=== PATIENT | male | born 1935 | race Caucasian/White ===

== ENCOUNTER 2019-11-18 10:11 | Inpatient (IN) | payer MEDICARE, MEDICAID ==
[~2019-11-18] VITALS: Ht 167.6 cm; Wt 68.5 kg
[2019-11-18] MEDS ORDERED: SODIUM CHLORIDE 0.9% 1,000 ML IV ONE (10:27)
[2019-11-18] MEDS ORDERED: PIPERACILLIN/TAZ 3.375G PREMIX 50 ML IV ONE (10:30)
[2019-11-18] MEDS ORDERED: VANCOMYCIN 1 G PREMIX 200 ML IV ONE (10:30)
[2019-11-18 11:05] LABS: BASOPHILS % 0.4 % (0.0-2.0); EOSINOPHILS % 0.1 % (0.0-5.0); HEMATOCRIT. 33.1 % (42.0-52.0); HEMOGLOBIN. 11.1 g/dL (14.0-18.0); LYMPHOCYTES % 7.3 % (20.0-50.0); MEAN CORPUSCULAR HEMOGLOBIN 31.5 pg (28.0-32.0); MEAN CORPUSCULAR VOLUME 93.9 fL (80.0-94.0); MEAN PLATELET VOLUME 8.2 fl (7.4-10.4); MONOCYTES % 4.1 % (2.0-8.0); NEUTROPHILS % 88.1 % (40.0-76.0); PLATELET 330 x1000/uL (130-400); RED BLOOD CELL COUNT 3.52 mill/uL (4.7-6.1); RED CELL DISTRIBUTION WIDTH 17.6 % (11.6-14.6)
[2019-11-18 11:12] LABS: CHLORIDE 100 mEq/L (98-107)
[2019-11-18 11:13] LABS: INR 1.2; PROTHROMBIN TIME 13.4 sec (9.6-11.0)
[2019-11-18 11:21] LABS: CLARITY URINE TURBID (CLEAR); COLOR URINE YELLOW (YELLOW); KETONES URINE NEGATIVE (NEGATIVE); LEUKOCYTE ESTERASE URINE 3+ (NEGATIVE); NITRITE URINE NEGATIVE (NEGATIVE); OCCULT BLOOD URINE 3+ (NEGATIVE); PROTEIN URINE 3+ (NEGATIVE); SPECIFIC GRAVITY URINE 1.011 (1.005-1.030); UROBILINOGEN URINE 0.2 E.U./dL (0.2-1.0)
[2019-11-18 12:18] LABS: BG BASE EXCESS 5.4 mmol/L (-2.0-2.0); BG CARBOXYHEMOGLOBIN 0.3 % (0.5-1.5); BG DEOXYHEMOGLOBIN 3.5 % (0.0-5.0); BG FRACTION INSPIRED OXYGEN 100; BG HCO3 ACT 29.9 mmol/L (22.0-26.0); BG METHEMOGLOBIN 0.2 % (0.0-1.5); BG OXYGEN SATURATION 96.5 % (92.0-98.5); BG PCO2 43.7 mmHg (35.0-45.0); BG PH 7.453 (7.350-7.450); BG PO2 84.5 mmHg (75.0-100.0); BG SAMPLE SITE RIGHT RADIAL; BG TIDAL VOLUME(mL) 400 mL; BG TOTAL HEMOGLOBIN 10.1 g/dL (12.0-18.0); BG VENT MODE VENT - A/C; BG VENT RATE 14 set
[2019-11-18] MEDS ORDERED: ONDANSETRON HCL 4MG/2ML INJ IV PRN (12:30)
[2019-11-18] MEDS ORDERED: PIPERACILLIN/TAZ 3.375G PREMIX 50 ML IV SCH ×2 (12:30→23:00)
[2019-11-18] MEDS ORDERED: NITROGLYCERIN 0.4MG TABLET SL SL PRN (12:30)
[2019-11-18] MEDS ORDERED: NA PHOS,M-B/NA PHOS,DI-BA ENEMA 118ML PR PRN (12:30)
[2019-11-18] MEDS ORDERED: ACETAMINOPHEN 650MG/20.3ML UDC GT PRN (12:30)
[2019-11-18] MEDS ORDERED: TRAMADOL 50MG TABLET PO PRN (12:30)
[2019-11-18] MEDS ORDERED: DOCUSATE SODIUM 100MG CAPSULE PO PRN (12:30)
[2019-11-18] MEDS ORDERED: IPRATROPIUM/ALBUTEROL 0.5-3(2.5)MG/3ML NEB NEB PRN (12:30)
[2019-11-18] MEDS ORDERED: GUAIFENESIN 200MG/10ML SUGAR FREE UDC PO PRN (12:30)
[2019-11-18] MEDS: DEXT 5%/LACTATED RINGERS 1,000 ML IV SCH (12:53)
[2019-11-18] MEDS ORDERED: ENOXAPARIN 40MG/0.4ML SYR SUBCUT SCH (13:00)
[2019-11-18 14:20] LABS: FOLIC ACID (FOLATE) SERUM >20 ng/mL ng/mL (>5.38)
[2019-11-18 14:33] LABS: VITAMIN B12 SERUM 868 pg/mL (211-911)
[2019-11-18 16:17] LABS: CREATINE KINASE MB FRACTION 3.3 ng/mL (0.5-3.6)
[2019-11-18] MEDS: IPRATROPIUM/ALBUTEROL 0.5-3(2.5)MG/3ML NEB HHN SCH (19:58)
[2019-11-18] MEDS ORDERED: NOREPINEPHRINE 4MG/250ML PMX 250 ML IV ONE (21:11)
[2019-11-18] MEDS ORDERED: NOREPINEPHRINE 4 MG in DEXT 5% WATER 246 ML IV ONE (21:15)
[2019-11-18] MEDS ORDERED: ALBUMIN HUMAN 25GM/100ML (25%) IV NR (22:39)
[2019-11-19] VITALS (106 sets, daily range): BP systolic 71–175; BP diastolic 33–93
[2019-11-19 00:13] LABS: CREATINE KINASE MB FRACTION 5.2 ng/mL (0.5-3.6)
[2019-11-19] MEDS ORDERED: NOREPINEPHRINE 4MG/250ML PMX 250 ML IV SCH (00:32)
[2019-11-19] MEDS: IPRATROPIUM/ALBUTEROL 0.5-3(2.5)MG/3ML NEB HHN SCH ×6 (00:41→20:02)
[2019-11-19] MEDS ORDERED: ZOLPIDEM TARTRATE 5MG TABLET PO PRN (01:15)
[2019-11-19] MEDS ORDERED: VANCOMYCIN 1500MG in DEXTROSE 5% WATER 250ML IV SCH (02:00)
[2019-11-19] MEDS ORDERED: NOREPINEPHRINE 4 MG in DEXT 5% WATER 246 ML IV SCH (03:00)
[2019-11-19] MEDS: DEXT 5%/LACTATED RINGERS 1,000 ML IV SCH ×2 (03:00→17:54)
[2019-11-19] MEDS ORDERED: VASOPRESSIN 10 UNIT in SODIUM CHLORIDE 0.9% 99.5 ML IV PRN ×4 (03:00)
[2019-11-19 03:14] LABS: BG BASE EXCESS 5.8 mmol/L (-2.0-2.0); BG CARBOXYHEMOGLOBIN 0.3 % (0.5-1.5); BG DEOXYHEMOGLOBIN 2.9 % (0.0-5.0); BG FRACTION INSPIRED OXYGEN 80; BG METHEMOGLOBIN 0.4 % (0.0-1.5); BG OXYGEN SATURATION 97.1 % (92.0-98.5); BG OXYHEMOGLOBIN 96.4 % (94.0-97.0); BG PCO2 49.6 mmHg (35.0-45.0); BG PH 7.414 (7.350-7.450); BG PO2 93.3 mmHg (75.0-100.0); BG SAMPLE SITE RIGHT RADIAL; BG TIDAL VOLUME(mL) 450 mL; BG TOTAL HEMOGLOBIN 7.8 g/dL (12.0-18.0); BG VENT MODE VENT - A/C; BG VENT RATE 12 set
[2019-11-19 05:50] LABS: BASOPHILS % 0.2 % (0.0-2.0); LYMPHOCYTES % 7.7 % (20.0-50.0); MEAN CORPUSCULAR VOLUME 96.2 fL (80.0-94.0); MEAN PLATELET VOLUME 7.8 fl (7.4-10.4); MONOCYTES % 4.2 % (2.0-8.0); NEUTROPHILS % 87.9 % (40.0-76.0); PLATELET 307 x1000/uL (130-400); RED BLOOD CELL COUNT 1.94 mill/uL (4.7-6.1); RED CELL DISTRIBUTION WIDTH 18.1 % (11.6-14.6)
[2019-11-19 05:58] LABS: HEMATOCRIT. 18.7 % (42.0-52.0); HEMOGLOBIN. 6.2 g/dL (14.0-18.0)
[2019-11-19] MEDS: PIPERACILLIN/TAZOBACTAM 3.375 G in DEXT 5% WATER 100 ML IV SCH ×3 (06:32→21:29)
[2019-11-19] MEDS: NOREPINEPHRINE 32 MG in DEXT 5% WATER 468 ML IV PRN (06:51)
[2019-11-19] MEDS ORDERED: CRAN450T10 GT (07:01)
[2019-11-19] MEDS ORDERED: ENOX40DI8 SQ (07:01)
[2019-11-19] MEDS ORDERED: MULT1TAB76 GT (07:01)
[2019-11-19] MEDS ORDERED: FE300LUD GT (07:01)
[2019-11-19] MEDS ORDERED: TOPUD GT (07:01)
[2019-11-19] MEDS ORDERED: HYDR-3281 PO (07:01)
[2019-11-19] MEDS ORDERED: ZINC1CAP2 GT (07:01)
[2019-11-19] MEDS ORDERED: CRAN3875 PO (07:01)
[2019-11-19] MEDS ORDERED: DOCU-138 GT (07:01)
[2019-11-19] MEDS ORDERED: LISI2.5T47 GT (07:01)
[2019-11-19] MEDS ORDERED: ACET-2081 GT (07:01)
[2019-11-19] MEDS ORDERED: ASCO-339 GT (07:01)
[2019-11-19] MEDS ORDERED: FINA5TAB11 PO (07:01)
[2019-11-19] MEDS ORDERED: SAW/1TAB2 PO (07:01)
[2019-11-19 07:58] LABS: BG BASE EXCESS 5.2 mmol/L (-2.0-2.0); BG CARBOXYHEMOGLOBIN 0.2 % (0.5-1.5); BG DEOXYHEMOGLOBIN 2.8 % (0.0-5.0); BG FRACTION INSPIRED OXYGEN 80; BG HCO3 ACT 30.6 mmol/L (22.0-26.0); BG METHEMOGLOBIN 0.3 % (0.0-1.5); BG OXYGEN SATURATION 97.2 % (92.0-98.5); BG OXYHEMOGLOBIN 96.7 % (94.0-97.0); BG PCO2 51.4 mmHg (35.0-45.0); BG PH 7.393 (7.350-7.450); BG PO2 101.2 mmHg (75.0-100.0); BG SAMPLE SITE RIGHT RADIAL; BG TIDAL VOLUME(mL) 450 mL; BG TOTAL HEMOGLOBIN 6.5 g/dL (12.0-18.0); BG VENT MODE VENT - A/C; BG VENT RATE 12 set
[2019-11-19] MEDS ORDERED: ASPIRIN 81MG EC TABLET PO SCH (09:00)
[2019-11-19] MEDS ORDERED: ASCORBIC ACID 500 MG TABLET PO SCH (09:00)
[2019-11-19] MEDS ORDERED: PANTOPRAZOLE SODIUM 40 MG/VIAL IV SCH (09:00)
[2019-11-19] MEDS ORDERED: ZINC SULFATE 220 MG ( 50 ) CAPSULE PO SCH (09:00)
[2019-11-19 16:50] LABS: HEPATITIS B SURFACE ANTIGEN NEGATIVE
[2019-11-19 17:20] LABS: HEPATITIS A AB IGM NEGATIVE (NEGATIVE)
[2019-11-19] MEDS: PANTOPRAZOLE SODIUM 40 MG/VIAL IV SCH (17:52)
[2019-11-19 17:56] LABS: HEMATOCRIT 22.5 % (42.0-52.0); HEMOGLOBIN 7.9 g/dL (14.0-18.0)
[2019-11-20] VITALS (64 sets, daily range): BP systolic 86–151; BP diastolic 37–83
[2019-11-20] MEDS: IPRATROPIUM/ALBUTEROL 0.5-3(2.5)MG/3ML NEB HHN SCH ×7 (00:27→23:42)
[2019-11-20 00:43] LABS: HEMATOCRIT 29.2 % (42.0-52.0); HEMOGLOBIN 10.4 g/dL (14.0-18.0)
[2019-11-20] MEDS ORDERED: POTASSIUM CHLORIDE 20MEQ TABLET SR PO SCH (01:00)
[2019-11-20] MEDS: DEXT 5%/0.9% NACL 1,000 ML IV SCH ×2 (01:25→15:24)
[2019-11-20] MEDS: PIPERACILLIN/TAZOBACTAM 3.375 G in DEXT 5% WATER 100 ML IV SCH ×3 (05:09→21:07)
[2019-11-20 05:22] LABS: BASOPHILS % 0.2 % (0.0-2.0); EOSINOPHILS % 0.1 % (0.0-5.0); HEMATOCRIT. 25.3 % (42.0-52.0); LYMPHOCYTES % 7.6 % (20.0-50.0); MEAN CORPUSCULAR HEMOGLOBIN 31.2 pg (28.0-32.0); MEAN CORPUSCULAR VOLUME 87.9 fL (80.0-94.0); MEAN PLATELET VOLUME 7.7 fl (7.4-10.4); MONOCYTES % 2.7 % (2.0-8.0); NEUTROPHILS % 89.4 % (40.0-76.0); PLATELET 189 x1000/uL (130-400); RED BLOOD CELL COUNT 2.87 mill/uL (4.7-6.1); RED CELL DISTRIBUTION WIDTH 18.1 % (11.6-14.6)
[2019-11-20 05:23] LABS: CHLORIDE 101 mEq/L (98-107)
[2019-11-20 05:36] LABS: INR 1.1; PROTHROMBIN TIME 12.1 sec (9.6-11.0)
[2019-11-20] MEDS: VANCOMYCIN 750 MG PREMIX 150 ML IV SCH (05:36)
[2019-11-20 06:01] LABS: VITAMIN B12 SERUM 745 pg/mL (211-911)
[2019-11-20] MEDS: PANTOPRAZOLE SODIUM 40 MG/VIAL IV SCH ×2 (08:52→17:51)
[2019-11-20] MEDS ORDERED: FENTANYL CITRATE/PF 50MCG/ML 2ML VIAL ONE (14:27)
[2019-11-20] MEDS ORDERED: MIDAZOLAM HCL 5 MG/5 ML VIAL ONE (14:27)
[2019-11-20] MEDS ORDERED: MIDAZOLAM HCL 5 MG/5 ML VIAL IV PRN (14:43)
[2019-11-20] MEDS: NOREPINEPHRINE 32 MG in DEXT 5% WATER 468 ML IV PRN (15:38)
[2019-11-20 17:07] LABS: HEMOGLOBIN 7.4 g/dL (14.0-18.0)
[2019-11-20 17:08] LABS: HEMATOCRIT 21.1 % (42.0-52.0)
[2019-11-20 23:25] LABS: HEMATOCRIT 28.4 % (42.0-52.0)
[2019-11-21] VITALS (83 sets, daily range): BP systolic 79–133; BP diastolic 37–85
[2019-11-21] MEDS: IPRATROPIUM/ALBUTEROL 0.5-3(2.5)MG/3ML NEB HHN SCH ×5 (03:50→20:42)
[2019-11-21] MEDS: VANCOMYCIN 750 MG PREMIX 150 ML IV SCH (05:56)
[2019-11-21] MEDS: PIPERACILLIN/TAZOBACTAM 3.375 G in DEXT 5% WATER 100 ML IV SCH (05:56)
[2019-11-21] MEDS: DEXT 5%/0.9% NACL 1,000 ML IV SCH (05:57)
[2019-11-21 07:48] LABS: BG BASE EXCESS 1.8 mmol/L (-2.0-2.0); BG CARBOXYHEMOGLOBIN 0.3 % (0.5-1.5); BG DEOXYHEMOGLOBIN 1.6 % (0.0-5.0); BG FRACTION INSPIRED OXYGEN 80; BG HCO3 ACT 26.6 mmol/L (22.0-26.0); BG METHEMOGLOBIN 0.2 % (0.0-1.5); BG OXYGEN SATURATION 98.4 % (92.0-98.5); BG OXYHEMOGLOBIN 97.9 % (94.0-97.0); BG PCO2 42.9 mmHg (35.0-45.0); BG PH 7.411 (7.350-7.450); BG PO2 141.1 mmHg (75.0-100.0); BG SAMPLE SITE RIGHT RADIAL; BG TIDAL VOLUME(mL) 450 mL; BG VENT MODE VENT - A/C; BG VENT RATE 12 set
[2019-11-21] MEDS: PANTOPRAZOLE SODIUM 40 MG/VIAL IV SCH ×2 (08:10→17:33)
[2019-11-21] MEDS ORDERED: [UNRECOGNIZED DRUG - OTHER] XX SCH (09:30)
[2019-11-21 09:48] LABS: HEMATOCRIT. 25.4 % (42.0-52.0); HEMOGLOBIN. 8.9 g/dL (14.0-18.0); MEAN CORPUSCULAR HEMOGLOBIN 31.1 pg (28.0-32.0); MEAN CORPUSCULAR VOLUME 89.1 fL (80.0-94.0); MEAN PLATELET VOLUME 7.4 fl (7.4-10.4); PLATELET 147 x1000/uL (130-400); RED BLOOD CELL COUNT 2.86 mill/uL (4.7-6.1); RED CELL DISTRIBUTION WIDTH 16.8 % (11.6-14.6)
[2019-11-21 10:33] LABS: PLATELET ESTIMATE NORMAL
[2019-11-21] MEDS ORDERED: GENTAMICIN 120MG PREMIX 100 ML IV SCH (11:00)
[2019-11-21] MEDS: METOCLOPRAMIDE HCL 10MG/2ML VIAL IV SCH ×2 (11:35→17:33)
[2019-11-21] MEDS: DEXT 5%/0.45% NACL 1000ML 1,000 ML IV SCH (11:39)
[2019-11-21] MEDS ORDERED: KCL 20MEQ/100ML PREMIX 100 ML IV NR (12:00)
[2019-11-21] MEDS: SUCRALFATE 1 G/10 ML UDC PO SCH ×3 (12:02→21:15)
[2019-11-21] MEDS ORDERED: LEVOFLOXACIN 500MG PREMIX 100 ML IV SCH (13:00)
[2019-11-22] VITALS (49 sets, daily range): BP systolic 94–133; BP diastolic 42–77
[2019-11-22] MEDS: METOCLOPRAMIDE HCL 10MG/2ML VIAL IV SCH ×5 (00:18→23:56)
[2019-11-22] MEDS: MORPHINE SULFATE 2 MG/ML CPJ (NOT FOR IM USE) IV PRN (00:19)
[2019-11-22] MEDS: IPRATROPIUM/ALBUTEROL 0.5-3(2.5)MG/3ML NEB HHN SCH ×6 (00:36→20:26)
[2019-11-22] MEDS: VANCOMYCIN 750 MG PREMIX 150 ML IV SCH (05:34)
[2019-11-22 05:53] LABS: BASOPHILS % 0.3 % (0.0-2.0); EOSINOPHILS % 1.6 % (0.0-5.0); HEMATOCRIT. 26.9 % (42.0-52.0); HEMOGLOBIN. 9.6 g/dL (14.0-18.0); LYMPHOCYTES % 12.1 % (20.0-50.0); MEAN CORPUSCULAR HEMOGLOBIN 31.8 pg (28.0-32.0); MEAN CORPUSCULAR VOLUME 89.3 fL (80.0-94.0); MEAN PLATELET VOLUME 7.7 fl (7.4-10.4); MONOCYTES % 2.7 % (2.0-8.0); NEUTROPHILS % 83.3 % (40.0-76.0); PLATELET 152 x1000/uL (130-400); RED BLOOD CELL COUNT 3.01 mill/uL (4.7-6.1); RED CELL DISTRIBUTION WIDTH 16.8 % (11.6-14.6)
[2019-11-22 07:36] LABS: GENTAMICIN RANDOM 1.7 ug/mL; VANCOMYCIN TROUGH 23.7 ug/mL (5.0-10.0)
[2019-11-22] MEDS: PANTOPRAZOLE SODIUM 40 MG/VIAL IV SCH ×2 (08:17→18:06)
[2019-11-22] MEDS: SUCRALFATE 1 G/10 ML UDC PO SCH ×4 (08:17→20:44)
[2019-11-22] MEDS: DEXT 5%/0.45% NACL 1000ML 1,000 ML IV SCH (08:18)
[2019-11-22 08:52] LABS: BG CARBOXYHEMOGLOBIN 0.3 % (0.5-1.5); BG FRACTION INSPIRED OXYGEN 50; BG HCO3 ACT 27.6 mmol/L (22.0-26.0); BG METHEMOGLOBIN 0.1 % (0.0-1.5); BG OXYHEMOGLOBIN 94.6 % (94.0-97.0); BG PCO2 42.4 mmHg (35.0-45.0); BG PH 7.432 (7.350-7.450); BG PO2 70.4 mmHg (75.0-100.0); BG SAMPLE SITE RIGHT RADIAL; BG TIDAL VOLUME(mL) 450 mL; BG TOTAL HEMOGLOBIN 9.6 g/dL (12.0-18.0); BG VENT MODE VENT - A/C; BG VENT RATE 12 set
[2019-11-22] MEDS ORDERED: POTASSIUM CHLORIDE 20MEQ/PACKET PO NR (10:15)
[2019-11-22] MEDS ORDERED: GENTAMICIN 80MG PREMIX 100 ML IV SCH (12:00)
[2019-11-22] MEDS: LEVOFLOXACIN 250MG PREMIX 50 ML IV SCH (13:11)
[2019-11-23] VITALS (20 sets, daily range): BP systolic 113–148; BP diastolic 54–89
[2019-11-23] MEDS: IPRATROPIUM/ALBUTEROL 0.5-3(2.5)MG/3ML NEB HHN SCH ×6 (00:37→20:32)
[2019-11-23] MEDS: MORPHINE SULFATE 2 MG/ML CPJ (NOT FOR IM USE) IV PRN (04:31)
[2019-11-23] MEDS: METOCLOPRAMIDE HCL 10MG/2ML VIAL IV SCH ×3 (05:36→18:08)
[2019-11-23 06:27] LABS: BASOPHILS % 0.3 % (0.0-2.0); EOSINOPHILS % 1.6 % (0.0-5.0); HEMOGLOBIN. 9.8 g/dL (14.0-18.0); LYMPHOCYTES % 11.2 % (20.0-50.0); MEAN CORPUSCULAR HEMOGLOBIN 31.7 pg (28.0-32.0); MEAN PLATELET VOLUME 7.4 fl (7.4-10.4); MONOCYTES % 3.1 % (2.0-8.0); NEUTROPHILS % 83.8 % (40.0-76.0); PLATELET 158 x1000/uL (130-400); RED BLOOD CELL COUNT 3.08 mill/uL (4.7-6.1); RED CELL DISTRIBUTION WIDTH 17.6 % (11.6-14.6)
[2019-11-23 07:12] LABS: CHLORIDE 113 mEq/L (98-107)
[2019-11-23 07:19] LABS: PHOSPHORUS 1.7 mg/dL (2.5-4.9)
[2019-11-23 08:14] LABS: GENTAMICIN RANDOM 4.7 ug/mL
[2019-11-23 08:24] LABS: BG BASE EXCESS 3.2 mmol/L (-2.0-2.0); BG CARBOXYHEMOGLOBIN 0.2 % (0.5-1.5); BG DEOXYHEMOGLOBIN 2.9 % (0.0-5.0); BG FRACTION INSPIRED OXYGEN 50; BG HCO3 ACT 28.3 mmol/L (22.0-26.0); BG METHEMOGLOBIN 0.3 % (0.0-1.5); BG OXYGEN SATURATION 97.1 % (92.0-98.5); BG OXYHEMOGLOBIN 96.6 % (94.0-97.0); BG PCO2 44.9 mmHg (35.0-45.0); BG PH 7.417 (7.350-7.450); BG PO2 88.2 mmHg (75.0-100.0); BG SAMPLE SITE RIGHT RADIAL; BG TIDAL VOLUME(mL) 450 mL; BG VENT MODE VENT - A/C; BG VENT RATE 12 set
[2019-11-23] MEDS: SUCRALFATE 1 G/10 ML UDC PO SCH ×4 (08:49→20:41)
[2019-11-23] MEDS: POTASSIUM-SODIUM PHOSPHATE POWDER PACKET PO SCH ×2 (08:49→18:08)
[2019-11-23] MEDS: MULTIVITAMINS,THER W-MINERALS TABLET PO SCH (08:50)
[2019-11-23] MEDS: FUROSEMIDE 20MG TABLET PO SCH (08:50)
[2019-11-23] MEDS: PANTOPRAZOLE SODIUM 40 MG/VIAL IV SCH ×2 (08:50→18:08)
[2019-11-23] MEDS: LEVOFLOXACIN 250MG PREMIX 50 ML IV SCH (14:38)
[2019-11-23] MEDS ORDERED: VANCOMYCIN 1 G PREMIX 200 ML IV SCH (18:00)
[2019-11-24] VITALS (12 sets, daily range): BP systolic 102–148; BP diastolic 56–86
[2019-11-24] MEDS: IPRATROPIUM/ALBUTEROL 0.5-3(2.5)MG/3ML NEB HHN SCH ×6 (00:27→20:49)
[2019-11-24] MEDS: METOCLOPRAMIDE HCL 10MG/2ML VIAL IV SCH ×4 (05:37→17:02)
[2019-11-24 08:50] LABS: BG BASE EXCESS 9.7 mmol/L (-2.0-2.0); BG CARBOXYHEMOGLOBIN 0.3 % (0.5-1.5); BG DEOXYHEMOGLOBIN 14.8 % (0.0-5.0); BG FRACTION INSPIRED OXYGEN 50; BG HCO3 ACT 34.4 mmol/L (22.0-26.0); BG METHEMOGLOBIN 0.2 % (0.0-1.5); BG OXYGEN SATURATION 85.1 % (92.0-98.5); BG OXYHEMOGLOBIN 84.7 % (94.0-97.0); BG PCO2 47.5 mmHg (35.0-45.0); BG PH 7.478 (7.350-7.450); BG PO2 44.7 mmHg (75.0-100.0); BG SAMPLE SITE RIGHT RADIAL; BG TIDAL VOLUME(mL) 450 mL; BG TOTAL HEMOGLOBIN 10.5 g/dL (12.0-18.0); BG VENT MODE VENT - A/C; BG VENT RATE 12 set
[2019-11-24] MEDS: SUCRALFATE 1 G/10 ML UDC PO SCH ×4 (08:55→21:19)
[2019-11-24] MEDS: PANTOPRAZOLE SODIUM 40 MG/VIAL IV SCH ×2 (08:55→16:58)
[2019-11-24] MEDS: POTASSIUM-SODIUM PHOSPHATE POWDER PACKET PO SCH ×2 (08:55→16:58)
[2019-11-24] MEDS: FUROSEMIDE 20MG TABLET PO SCH (08:56)
[2019-11-24] MEDS: MULTIVITAMINS,THER W-MINERALS TABLET PO SCH (08:56)
[2019-11-24 10:10] LABS: BG BASE EXCESS 4.6 mmol/L (-2.0-2.0); BG CARBOXYHEMOGLOBIN 0.3 % (0.5-1.5); BG DEOXYHEMOGLOBIN 2.8 % (0.0-5.0); BG FRACTION INSPIRED OXYGEN 50; BG HCO3 ACT 29.3 mmol/L (22.0-26.0); BG METHEMOGLOBIN 0.2 % (0.0-1.5); BG OXYGEN SATURATION 97.2 % (92.0-98.5); BG OXYHEMOGLOBIN 96.7 % (94.0-97.0); BG PCO2 44.5 mmHg (35.0-45.0); BG PH 7.437 (7.350-7.450); BG PO2 90.7 mmHg (75.0-100.0); BG SAMPLE SITE RIGHT RADIAL; BG TIDAL VOLUME(mL) 450 mL; BG TOTAL HEMOGLOBIN 10.9 g/dL (12.0-18.0); BG VENT MODE VENT - A/C; BG VENT RATE 12 set
[2019-11-24] MEDS ORDERED: LEVOFLOXACIN 250MG TABLET PO SCH (11:00)
[2019-11-24] MEDS ORDERED: DEXTROSE 50% WATER 50ML SYRINGE IV PRN (12:00)
[2019-11-24] MEDS ORDERED: GENTAMICIN 120MG PREMIX 100 ML IV SCH (12:00)
[2019-11-24] MEDS: BLOOD SUGAR DIAGNOSTIC STRIP TEST SCH ×2 (13:00→17:00)
[2019-11-24] MEDS: INSULIN LISPRO 100 UNITS/ML SUBCUT SCH ×3 (13:00→21:00)
[2019-11-24 14:17] LABS: CHLORIDE 112 mEq/L (98-107)
== END 2019-11-24 21:57 | DRG 720 ==
LOC: ER 11:04 → CVICU 11:57 → EDBEDREQ 12:01 → SUPCPDRO 12:23 → EDBEDREQ 21:19 → EDBEDREQSVC 21:19 → EDBEDREQTM 21:19 → ENRESERV 23:53 → 5EST 11-23 17:27
PROVIDERS: ADMIT Internal Medicine; ATTEND Internal Medicine
PROC: 5A1955Z Respiratory Ventilation, Greater than 96 Consecutive Hours (ICD-10-PCS; principal; 2019-11-18)
PROC: 02HV33Z Insertion of Infusion Device into Superior Vena Cava, Percutaneous Approach (ICD-10-PCS; 2019-11-18)
PROC: B548ZZA Ultrasonography of Superior Vena Cava, Guidance (ICD-10-PCS; 2019-11-18)
PROC: 30233N1 Transfusion of Nonautologous Red Blood Cells into Peripheral Vein, Percutaneous Approach (ICD-10-PCS; 2019-11-19)
PROC: 0DB78ZX Excision of Stomach, Pylorus, Via Natural or Artificial Opening Endoscopic, Diagnostic (ICD-10-PCS; 2019-11-20)
DX: A41.9 Sepsis, unspecified organism (principal); J69.0 Pneumonitis due to inhalation of food and vomit; J96.20 Acute and chronic respiratory failure, unspecified whether with hypoxia or hypercapnia; N17.0 Acute kidney failure with tubular necrosis; E43 Unspecified severe protein-calorie malnutrition; G93.41 Metabolic encephalopathy; R57.1 Hypovolemic shock; K22.11 Ulcer of esophagus with bleeding; Z93.0 Tracheostomy status; N18.3 Chronic kidney disease, stage 3 (moderate); J44.1 Chronic obstructive pulmonary disease with (acute) exacerbation; D62 Acute posthemorrhagic anemia; E11.22 Type 2 diabetes mellitus with diabetic chronic kidney disease; D68.59 Other primary thrombophilia; E03.9 Hypothyroidism, unspecified; E11.51 Type 2 diabetes mellitus with diabetic peripheral angiopathy without gangrene; E78.5 Hyperlipidemia, unspecified; E87.0 Hyperosmolality and hypernatremia; E87.6 Hypokalemia; I48.0 Paroxysmal atrial fibrillation; I50.32 Chronic diastolic (congestive) heart failure; K22.2 Esophageal obstruction; K44.9 Diaphragmatic hernia without obstruction or gangrene; K29.61 Other gastritis with bleeding; B37.49 Other urogenital candidiasis; Y95 Nosocomial condition; E83.39 Other disorders of phosphorus metabolism; S81.812A Laceration without foreign body, left lower leg, initial encounter; R74.0 Nonspecific elevation of levels of transaminase and lactic acid dehydrogenase [LDH]; R47.02 Dysphasia; X58.XXXA Exposure to other specified factors, initial encounter; N40.0 Benign prostatic hyperplasia without lower urinary tract symptoms; Z86.718 Personal history of other venous thrombosis and embolism; Z87.11 Personal history of peptic ulcer disease; Z87.19 Personal history of other diseases of the digestive system; Z93.1 Gastrostomy status; Z79.899 Other long term (current) drug therapy; Y93.89 Activity, other specified; Y92.89 Other specified places as the place of occurrence of the external cause; Y99.8 Other external cause status
CPT/HCPCS: 36415; 36600; 71045; 74018; 76700; 76937; 80048; 80053; 80061; 80170; 80202; 81003; 82270; 82375; 82550; 82553; 82607; 82746; 82805; 82962; 83036; 83540; 83550; 83735; 83880; 84100; 84134; 84484; 85014; 85018; 85025; 85044; 86705; 86709; 86803; 86850; 86900; 86920; 87070; 87077; 87106; 87186; 87340; 88305; 88312; 88313; 93005; 93306; 93970; 94003; 94640; 99291; C1725; C9113; J1580; J1650; J1956; J2250; J2270; J2543; J2765; J3010; J3370; J3480; J3490; J7030; J7042; J7060; P9016; P9047

== ENCOUNTER 2019-12-08 23:52 | Inpatient (IN) | payer MEDICARE, MEDICAID ==
[~2019-12-08] VITALS: Ht 162.6 cm; Wt 66.2 kg
[~2019-12-08 23:52] MED LIST: ACET-2081 GT; ASCO-339 GT; CRAN3875 PO; CRAN450T10 GT; DOCU-138 GT; ENOX40DI8 SQ; FE300LUD GT; FINA5TAB11 PO; HYDR-3281 PO; LISI2.5T47 GT; MULT1TAB76 GT; SAW/1TAB2 PO; TOPUD GT; ZINC1CAP2 GT
[2019-12-09] VITALS (11 sets, daily range): BP systolic 80–139; BP diastolic 40–74
[2019-12-09 00:48] LABS: HEMATOCRIT. 30.1 % (42.0-52.0); HEMOGLOBIN. 10.2 g/dL (14.0-18.0); MEAN CORPUSCULAR HEMOGLOBIN 31.7 pg (28.0-32.0); MEAN CORPUSCULAR VOLUME 93.6 fL (80.0-94.0); PLATELET 379 x1000/uL (130-400); RED BLOOD CELL COUNT 3.22 mill/uL (4.7-6.1); RED CELL DISTRIBUTION WIDTH 18.1 % (11.6-14.6)
[2019-12-09 00:52] LABS: INR 1.1; PROTHROMBIN TIME 11.4 sec (9.6-11.0)
[2019-12-09 00:54] LABS: BG BASE EXCESS -4.3 mmol/L (-2.0-2.0); BG CARBOXYHEMOGLOBIN 0.1 % (0.5-1.5); BG DEOXYHEMOGLOBIN 1.7 % (0.0-5.0); BG FRACTION INSPIRED OXYGEN 80; BG HCO3 ACT 21.6 mmol/L (22.0-26.0); BG METHEMOGLOBIN 0.1 % (0.0-1.5); BG OXYGEN SATURATION 98.3 % (92.0-98.5); BG OXYHEMOGLOBIN 98.1 % (94.0-97.0); BG PH 7.319 (7.350-7.450); BG PO2 127.4 mmHg (75.0-100.0); BG SAMPLE SITE RIGHT RADIAL; BG TIDAL VOLUME(mL) 450 mL; BG TOTAL HEMOGLOBIN 10.1 g/dL (12.0-18.0); BG VENT MODE VENT - A/C; BG VENT RATE 16 set
[2019-12-09 00:57] LABS: CHLORIDE 96 mEq/L (98-107)
[2019-12-09] MEDS ORDERED: LEVOFLOXACIN 750MG PREMIX 150 ML IV ONE (01:00)
[2019-12-09] MEDS ORDERED: VANCOMYCIN 1 G PREMIX 200 ML IV SCH ×2 (01:00→07:30)
[2019-12-09] MEDS ORDERED: CEFEPIME HCL 2000MG/VIAL INJ IV ONE (01:00)
[2019-12-09] MEDS ORDERED: SODIUM CHLORIDE 0.9% 250 ML IV ONE (01:15)
[2019-12-09 01:26] LABS: PLATELET ESTIMATE NORMAL
[2019-12-09] MEDS ORDERED: CEFEPIME 2,000 MG in DEXT 5% WATER 100 ML IV SCH (02:00)
[2019-12-09 04:50] LABS: CLARITY URINE CLOUDY (CLEAR); COLOR URINE YELLOW (YELLOW); KETONES URINE NEGATIVE (NEGATIVE); LEUKOCYTE ESTERASE URINE 2+ (NEGATIVE); NITRITE URINE NEGATIVE (NEGATIVE); OCCULT BLOOD URINE 3+ (NEGATIVE); PROTEIN URINE 1+ (NEGATIVE); SPECIFIC GRAVITY URINE 1.024 (1.005-1.030); UROBILINOGEN URINE 0.2 E.U./dL (0.2-1.0)
[2019-12-09] MEDS ORDERED: IOHEXOL-300 100 ML BOTTLE ONE (07:10)
[2019-12-09] MEDS ORDERED: ONDANSETRON HCL 4MG/2ML INJ IV PRN (07:30)
[2019-12-09] MEDS ORDERED: LEVOFLOXACIN 500MG PREMIX 100 ML IV SCH (07:30)
[2019-12-09] MEDS ORDERED: GUAIFENESIN 200MG/10ML SUGAR FREE UDC PO PRN (07:30)
[2019-12-09] MEDS ORDERED: CLONIDINE 0.1MG TABLET PO PRN (07:30)
[2019-12-09 10:02] LABS: HEMATOCRIT. 27.3 % (42.0-52.0); HEMOGLOBIN. 9.3 g/dL (14.0-18.0); MEAN CORPUSCULAR HEMOGLOBIN 31.4 pg (28.0-32.0); MEAN CORPUSCULAR VOLUME 92.9 fL (80.0-94.0); MEAN PLATELET VOLUME 6.7 fl (7.4-10.4); PLATELET 296 x1000/uL (130-400); RED BLOOD CELL COUNT 2.94 mill/uL (4.7-6.1); RED CELL DISTRIBUTION WIDTH 18.6 % (11.6-14.6)
[2019-12-09 10:08] LABS: CHLORIDE 98 mEq/L (98-107)
[2019-12-09 10:14] LABS: PHOSPHORUS 3.5 mg/dL (2.5-4.9)
[2019-12-09] MEDS ORDERED: DEXTROSE 50% WATER 50ML SYRINGE IV PRN (10:15)
[2019-12-09 11:15] LABS: PLATELET ESTIMATE NORMAL
[2019-12-09] MEDS: BLOOD SUGAR DIAGNOSTIC STRIP TEST SCH ×3 (12:40→21:46)
[2019-12-09] MEDS: INSULIN LISPRO 100 UNITS/ML SUBCUT SCH ×3 (12:41→21:00)
[2019-12-09] MEDS: ENOXAPARIN 40MG/0.4ML SYR SUBCUT SCH (13:36)
[2019-12-09] MEDS: IPRATROPIUM/ALBUTEROL 0.5-3(2.5)MG/3ML NEB HHN SCH ×2 (14:21→20:25)
[2019-12-09] MEDS: ACETYLCYSTEINE 100MG/ML 10% VIAL 4ML INH SCH (20:25)
[2019-12-10] VITALS (16 sets, daily range): BP systolic 81–101; BP diastolic 41–74
[2019-12-10] MEDS: VANCOMYCIN 1 G PREMIX 200 ML IV SCH ×2 (00:28→18:15)
[2019-12-10] MEDS: IPRATROPIUM/ALBUTEROL 0.5-3(2.5)MG/3ML NEB HHN SCH ×4 (02:05→20:24)
[2019-12-10] MEDS: BLOOD SUGAR DIAGNOSTIC STRIP TEST SCH ×4 (07:32→21:44)
[2019-12-10 07:57] LABS: BG BASE EXCESS -1.7 mmol/L (-2.0-2.0); BG CARBOXYHEMOGLOBIN 0.3 % (0.5-1.5); BG DEOXYHEMOGLOBIN 0.9 % (0.0-5.0); BG FRACTION INSPIRED OXYGEN 70; BG HCO3 ACT 22.6 mmol/L (22.0-26.0); BG METHEMOGLOBIN 0.3 % (0.0-1.5); BG OXYGEN SATURATION 99.1 % (92.0-98.5); BG OXYHEMOGLOBIN 98.5 % (94.0-97.0); BG PH 7.416 (7.350-7.450); BG PO2 128.6 mmHg (75.0-100.0); BG SAMPLE SITE RIGHT BRACHIAL; BG TIDAL VOLUME(mL) 500 mL; BG TOTAL HEMOGLOBIN 7.3 g/dL (12.0-18.0); BG VENT MODE VENT - A/C; BG VENT RATE 16 set
[2019-12-10] MEDS: INSULIN LISPRO 100 UNITS/ML SUBCUT SCH ×4 (08:00→21:00)
[2019-12-10] MEDS: ACETYLCYSTEINE 100MG/ML 10% VIAL 4ML INH SCH ×2 (08:35→20:24)
[2019-12-10] MEDS: ENOXAPARIN 40MG/0.4ML SYR SUBCUT SCH (09:06)
[2019-12-10] MEDS: MIDODRINE HCL 2.5MG TABLET PO SCH ×2 (10:34→18:15)
[2019-12-10 11:00] LABS: HEMOGLOBIN. 7.7 g/dL (14.0-18.0); MEAN CORPUSCULAR HEMOGLOBIN 31.1 pg (28.0-32.0); MEAN CORPUSCULAR VOLUME 93.2 fL (80.0-94.0); PLATELET 261 x1000/uL (130-400); RED BLOOD CELL COUNT 2.47 mill/uL (4.7-6.1); RED CELL DISTRIBUTION WIDTH 18.6 % (11.6-14.6)
[2019-12-10] MEDS ORDERED: LEVOFLOXACIN 750MG PREMIX 150 ML IV SCH (11:00)
[2019-12-10 11:04] LABS: CHLORIDE 101 mEq/L (98-107)
[2019-12-10 11:16] LABS: T4 FREE 0.31 ng/dL (0.76-1.46)
[2019-12-10] MEDS: CEFEPIME 2,000 MG in DEXT 5% WATER 100 ML IV SCH (11:18)
[2019-12-10 11:58] LABS: PLATELET ESTIMATE NORMAL
[2019-12-11] VITALS (12 sets, daily range): BP systolic 80–114; BP diastolic 42–58
[2019-12-11] MEDS: IPRATROPIUM/ALBUTEROL 0.5-3(2.5)MG/3ML NEB HHN SCH ×4 (01:56→20:14)
[2019-12-11 06:02] LABS: CHLORIDE 102 mEq/L (98-107)
[2019-12-11 06:16] LABS: MEAN CORPUSCULAR HEMOGLOBIN 31.2 pg (28.0-32.0); PLATELET 265 x1000/uL (130-400); RED BLOOD CELL COUNT 2.24 mill/uL (4.7-6.1); RED CELL DISTRIBUTION WIDTH 18.6 % (11.6-14.6)
[2019-12-11 06:46] LABS: HEMATOCRIT. 20.6 % (42.0-52.0)
[2019-12-11] MEDS: ACETYLCYSTEINE 100MG/ML 10% VIAL 4ML INH SCH ×2 (07:55→20:14)
[2019-12-11] MEDS: INSULIN LISPRO 100 UNITS/ML SUBCUT SCH ×4 (08:00→23:29)
[2019-12-11] MEDS: BLOOD SUGAR DIAGNOSTIC STRIP TEST SCH ×4 (08:21→23:30)
[2019-12-11] MEDS: ENOXAPARIN 40MG/0.4ML SYR SUBCUT SCH (08:25)
[2019-12-11] MEDS: MIDODRINE HCL 2.5MG TABLET PO SCH ×3 (08:37→16:46)
[2019-12-11] MEDS: CEFEPIME 2,000 MG in DEXT 5% WATER 100 ML IV SCH (10:08)
[2019-12-11] MEDS: LEVOTHYROXINE SODIUM 50MCG TABLET PO SCH (10:08)
[2019-12-11 10:37] LABS: TOTAL IRON BINDING CAPACITY 155 ug/dL (250-450)
[2019-12-11 10:54] LABS: FOLIC ACID (FOLATE) SERUM >20 ng/mL ng/mL (>5.38)
[2019-12-11 11:05] LABS: PLATELET ESTIMATE NORMAL
[2019-12-11 11:06] LABS: VITAMIN B12 SERUM 1385 pg/mL (211-911)
[2019-12-11] MEDS: VANCOMYCIN HCL 750 MG in DEXT 5% WATER 250 ML IV SCH (12:45)
[2019-12-11] MEDS: ZINC SULFATE 220 MG ( 50 ) CAPSULE PO SCH (15:06)
[2019-12-11] MEDS: ASCORBIC ACID 500 MG TABLET PO SCH (15:07)
[2019-12-12] VITALS (11 sets, daily range): BP systolic 92–113; BP diastolic 49–74
[2019-12-12] MEDS: IPRATROPIUM/ALBUTEROL 0.5-3(2.5)MG/3ML NEB HHN SCH ×4 (01:46→20:13)
[2019-12-12] MEDS: VANCOMYCIN HCL 750 MG in DEXT 5% WATER 250 ML IV SCH (05:15)
[2019-12-12] MEDS: INSULIN LISPRO 100 UNITS/ML SUBCUT SCH ×3 (05:17→17:34)
[2019-12-12] MEDS: BLOOD SUGAR DIAGNOSTIC STRIP TEST SCH ×3 (05:22→17:28)
[2019-12-12 05:47] LABS: CHLORIDE 101 mEq/L (98-107)
[2019-12-12 05:54] LABS: HEMATOCRIT. 22.8 % (42.0-52.0); HEMOGLOBIN. 7.7 g/dL (14.0-18.0); MEAN CORPUSCULAR HEMOGLOBIN 31.5 pg (28.0-32.0); MEAN CORPUSCULAR VOLUME 92.8 fL (80.0-94.0); PLATELET 247 x1000/uL (130-400); RED BLOOD CELL COUNT 2.46 mill/uL (4.7-6.1); RED CELL DISTRIBUTION WIDTH 17.8 % (11.6-14.6)
[2019-12-12] MEDS: LEVOTHYROXINE SODIUM 50MCG TABLET PO SCH (08:20)
[2019-12-12] MEDS: ASCORBIC ACID 500 MG TABLET PO SCH (08:20)
[2019-12-12] MEDS: ZINC SULFATE 220 MG ( 50 ) CAPSULE PO SCH (08:20)
[2019-12-12] MEDS: MIDODRINE HCL 2.5MG TABLET PO SCH ×3 (08:20→17:28)
[2019-12-12] MEDS: ENOXAPARIN 40MG/0.4ML SYR SUBCUT SCH (08:21)
[2019-12-12] MEDS: ACETYLCYSTEINE 100MG/ML 10% VIAL 4ML INH SCH ×2 (08:39→20:13)
[2019-12-12 09:37] LABS: PLATELET ESTIMATE NORMAL
[2019-12-12] MEDS: CEFEPIME 2,000 MG in DEXT 5% WATER 100 ML IV SCH (11:12)
[2019-12-12] MEDS: FERROUS SULFATE 325MG TABLET PO SCH ×2 (14:46→17:28)
[2019-12-13] VITALS (13 sets, daily range): BP systolic 88–116; BP diastolic 43–61
[2019-12-13] MEDS: IPRATROPIUM/ALBUTEROL 0.5-3(2.5)MG/3ML NEB HHN SCH ×3 (00:40→21:20)
[2019-12-13] MEDS: IPRATROPIUM/ALBUTEROL 0.5-3(2.5)MG/3ML NEB HHN PRN ×3 (04:25→16:31)
[2019-12-13] MEDS: BLOOD SUGAR DIAGNOSTIC STRIP TEST SCH ×4 (05:19→17:26)
[2019-12-13] MEDS: INSULIN LISPRO 100 UNITS/ML SUBCUT SCH ×4 (05:19→17:26)
[2019-12-13 06:51] LABS: HEMATOCRIT. 22.7 % (42.0-52.0); HEMOGLOBIN. 7.7 g/dL (14.0-18.0); MEAN CORPUSCULAR HEMOGLOBIN 31.5 pg (28.0-32.0); MEAN CORPUSCULAR VOLUME 92.4 fL (80.0-94.0); MEAN PLATELET VOLUME 6.8 fl (7.4-10.4); PLATELET 272 x1000/uL (130-400); RED BLOOD CELL COUNT 2.45 mill/uL (4.7-6.1); RED CELL DISTRIBUTION WIDTH 18.3 % (11.6-14.6)
[2019-12-13 06:52] LABS: CHLORIDE 101 mEq/L (98-107)
[2019-12-13] MEDS: ACETYLCYSTEINE 100MG/ML 10% VIAL 4ML INH SCH ×2 (08:25→21:20)
[2019-12-13] MEDS: LEVOTHYROXINE SODIUM 50MCG TABLET PO SCH (08:46)
[2019-12-13] MEDS: MIDODRINE HCL 2.5MG TABLET PO SCH ×3 (08:46→17:26)
[2019-12-13] MEDS: ASCORBIC ACID 500 MG TABLET PO SCH (08:46)
[2019-12-13] MEDS: FERROUS SULFATE 325MG TABLET PO SCH ×3 (08:47→17:26)
[2019-12-13] MEDS: ENOXAPARIN 40MG/0.4ML SYR SUBCUT SCH (08:47)
[2019-12-13] MEDS: ZINC SULFATE 220 MG ( 50 ) CAPSULE PO SCH (08:48)
[2019-12-13 09:51] LABS: PLATELET ESTIMATE NORMAL
[2019-12-13] MEDS: CEFEPIME 2,000 MG in DEXT 5% WATER 100 ML IV SCH (11:08)
[2019-12-14] VITALS (16 sets, daily range): BP systolic 102–131; BP diastolic 47–74
[2019-12-14] MEDS: BLOOD SUGAR DIAGNOSTIC STRIP TEST SCH ×5 (00:27→23:34)
[2019-12-14] MEDS: IPRATROPIUM/ALBUTEROL 0.5-3(2.5)MG/3ML NEB HHN SCH ×4 (02:02→20:32)
[2019-12-14] MEDS: INSULIN LISPRO 100 UNITS/ML SUBCUT SCH ×5 (05:31→23:34)
[2019-12-14 07:20] LABS: HEMATOCRIT. 23.9 % (42.0-52.0); MEAN CORPUSCULAR HEMOGLOBIN 31.2 pg (28.0-32.0); MEAN CORPUSCULAR VOLUME 92.9 fL (80.0-94.0); MEAN PLATELET VOLUME 6.8 fl (7.4-10.4); PLATELET 256 x1000/uL (130-400); RED BLOOD CELL COUNT 2.57 mill/uL (4.7-6.1); RED CELL DISTRIBUTION WIDTH 18.9 % (11.6-14.6)
[2019-12-14 07:36] LABS: CHLORIDE 102 mEq/L (98-107)
[2019-12-14] MEDS: ACETYLCYSTEINE 100MG/ML 10% VIAL 4ML INH SCH ×2 (08:05→20:31)
[2019-12-14] MEDS: ASCORBIC ACID 500 MG TABLET PO SCH (08:39)
[2019-12-14] MEDS: ZINC SULFATE 220 MG ( 50 ) CAPSULE PO SCH (08:39)
[2019-12-14] MEDS: MIDODRINE HCL 2.5MG TABLET PO SCH ×3 (08:40→17:17)
[2019-12-14] MEDS: FERROUS SULFATE 325MG TABLET PO SCH ×2 (08:40→11:54)
[2019-12-14] MEDS: LEVOTHYROXINE SODIUM 50MCG TABLET PO SCH (08:42)
[2019-12-14 11:34] LABS: PLATELET ESTIMATE NORMAL
[2019-12-14] MEDS: CEFEPIME 2,000 MG in DEXT 5% WATER 100 ML IV SCH (11:54)
[2019-12-14 18:02] LABS: TOTAL IRON BINDING CAPACITY 133 ug/dL (250-450)
[2019-12-15] VITALS (12 sets, daily range): BP systolic 83–113; BP diastolic 49–65
[2019-12-15] MEDS: IPRATROPIUM/ALBUTEROL 0.5-3(2.5)MG/3ML NEB HHN SCH ×4 (03:33→20:37)
[2019-12-15] MEDS: BLOOD SUGAR DIAGNOSTIC STRIP TEST SCH ×3 (05:19→17:56)
[2019-12-15] MEDS: INSULIN LISPRO 100 UNITS/ML SUBCUT SCH ×3 (05:19→17:56)
[2019-12-15 06:19] LABS: CHLORIDE 101 mEq/L (98-107)
[2019-12-15 06:27] LABS: HEMATOCRIT. 24.7 % (42.0-52.0); HEMOGLOBIN. 8.2 g/dL (14.0-18.0); MEAN CORPUSCULAR VOLUME 93.7 fL (80.0-94.0); MEAN PLATELET VOLUME 6.8 fl (7.4-10.4); PLATELET 290 x1000/uL (130-400); RED BLOOD CELL COUNT 2.63 mill/uL (4.7-6.1)
[2019-12-15] MEDS: PANTOPRAZOLE SODIUM 40 MG/VIAL IV SCH (08:57)
[2019-12-15] MEDS: ASCORBIC ACID 500 MG TABLET PO SCH (08:58)
[2019-12-15] MEDS: ZINC SULFATE 220 MG ( 50 ) CAPSULE PO SCH (08:58)
[2019-12-15] MEDS: MIDODRINE HCL 2.5MG TABLET PO SCH ×3 (08:58→18:06)
[2019-12-15] MEDS: LEVOTHYROXINE SODIUM 50MCG TABLET PO SCH (08:59)
[2019-12-15] MEDS: CEFEPIME 2,000 MG in DEXT 5% WATER 100 ML IV SCH (10:05)
[2019-12-15 11:06] LABS: PLATELET ESTIMATE NORMAL
[2019-12-16] VITALS (11 sets, daily range): BP systolic 95–125; BP diastolic 50–72
[2019-12-16] MEDS: BLOOD SUGAR DIAGNOSTIC STRIP TEST SCH ×4 (00:48→17:29)
[2019-12-16] MEDS: IPRATROPIUM/ALBUTEROL 0.5-3(2.5)MG/3ML NEB HHN SCH ×4 (01:57→16:35)
[2019-12-16] MEDS: INSULIN LISPRO 100 UNITS/ML SUBCUT SCH ×4 (06:30→17:29)
[2019-12-16] MEDS: MIDODRINE HCL 2.5MG TABLET PO SCH ×3 (08:46→17:35)
[2019-12-16] MEDS: ZINC SULFATE 220 MG ( 50 ) CAPSULE PO SCH (08:46)
[2019-12-16] MEDS: ASCORBIC ACID 500 MG TABLET PO SCH (08:46)
[2019-12-16] MEDS: PANTOPRAZOLE SODIUM 40 MG/VIAL IV SCH (08:46)
[2019-12-16] MEDS: LEVOTHYROXINE SODIUM 50MCG TABLET PO SCH (08:47)
== END 2019-12-16 20:10 | DRG 720 ==
LOC: ER 23:52 → EDBEDREQSVC 12-09 01:55 → EDBEDREQ 12-09 01:55 → 5EST 12-09 02:04 → EDBEDREQ 12-09 02:05 → EDBEDREQTM 12-09 02:05 → ENRESERV 12-09 03:48
PROVIDERS: ADMIT Internal Medicine; ATTEND Internal Medicine
PROC: 5A1955Z Respiratory Ventilation, Greater than 96 Consecutive Hours (ICD-10-PCS; principal; 2019-12-09)
DX: A41.9 Sepsis, unspecified organism (principal); J69.0 Pneumonitis due to inhalation of food and vomit; J96.21 Acute and chronic respiratory failure with hypoxia; E43 Unspecified severe protein-calorie malnutrition; E11.22 Type 2 diabetes mellitus with diabetic chronic kidney disease; E11.51 Type 2 diabetes mellitus with diabetic peripheral angiopathy without gangrene; E87.1 Hypo-osmolality and hyponatremia; K22.10 Ulcer of esophagus without bleeding; I13.0 Hypertensive heart and chronic kidney disease with heart failure and stage 1 through stage 4 chronic kidney disease, or unspecified chronic kidney disease; I50.32 Chronic diastolic (congestive) heart failure; I48.91 Unspecified atrial fibrillation; D64.9 Anemia, unspecified; J98.11 Atelectasis; N39.0 Urinary tract infection, site not specified; B96.89 Other specified bacterial agents as the cause of diseases classified elsewhere; E03.9 Hypothyroidism, unspecified; K29.50 Unspecified chronic gastritis without bleeding; N18.3 Chronic kidney disease, stage 3 (moderate); Z87.19 Personal history of other diseases of the digestive system; Z93.1 Gastrostomy status; Z87.440 Personal history of urinary (tract) infections; J44.9 Chronic obstructive pulmonary disease, unspecified; K56.7 Ileus, unspecified; E78.5 Hyperlipidemia, unspecified; N40.0 Benign prostatic hyperplasia without lower urinary tract symptoms
CPT/HCPCS: 36415; 36600; 71045; 74018; 74177; 76700; 80048; 80053; 80061; 80076; 80202; 81003; 82270; 82375; 82607; 82728; 82746; 82805; 82962; 83036; 83540; 83550; 83605; 83735; 83880; 84100; 84134; 84145; 84439; 84443; 84481; 84484; 85025; 86850; 86900; 86920; 87070; 87077; 87186; 93970; 94002; 94003; 94640; 99291; C9113; J0692; J1650; J1815; J1956; J3370; J7050; J7060; J7608; Q9967

== ENCOUNTER 2019-12-17 14:14 | Inpatient (IN) | payer MEDICARE, MEDICAID ==
[~2019-12-17] VITALS: Ht 162.6 cm; Wt 68.5 kg
[2019-12-17] MEDS ORDERED: LEVOFLOXACIN 500MG PREMIX 100 ML IV ONE (15:30)
[2019-12-17] MEDS ORDERED: PIPERACILLIN/TAZ 3.375G PREMIX 50 ML IV ONE (15:30)
[2019-12-17 15:31] LABS: HEMATOCRIT. 28.6 % (42.0-52.0); HEMOGLOBIN. 9.4 g/dL (14.0-18.0); MEAN CORPUSCULAR HEMOGLOBIN 30.3 pg (28.0-32.0); MEAN CORPUSCULAR VOLUME 91.6 fL (80.0-94.0); MEAN PLATELET VOLUME 7.1 fl (7.4-10.4); PLATELET 401 x1000/uL (130-400); RED BLOOD CELL COUNT 3.12 mill/uL (4.7-6.1); RED CELL DISTRIBUTION WIDTH 17.6 % (11.6-14.6)
[2019-12-17 15:35] LABS: CHLORIDE 101 mEq/L (98-107); INR 1.1; PROTHROMBIN TIME 12.1 sec (9.6-11.0)
[2019-12-17 15:50] LABS: CLARITY URINE CLEAR (CLEAR); COLOR URINE YELLOW (YELLOW); KETONES URINE NEGATIVE (NEGATIVE); LEUKOCYTE ESTERASE URINE NEGATIVE (NEGATIVE); NITRITE URINE NEGATIVE (NEGATIVE); OCCULT BLOOD URINE 2+ (NEGATIVE); PROTEIN URINE 2+ (NEGATIVE); SPECIFIC GRAVITY URINE 1.013 (1.005-1.030)
[2019-12-17 16:18] LABS: PLATELET ESTIMATE INCREASED
[2019-12-17 16:57] LABS: BG BASE EXCESS 0.9 mmol/L (-2.0-2.0); BG CARBOXYHEMOGLOBIN 0.3 % (0.5-1.5); BG DEOXYHEMOGLOBIN 1.3 % (0.0-5.0); BG FRACTION INSPIRED OXYGEN 50; BG HCO3 ACT 24.3 mmol/L (22.0-26.0); BG METHEMOGLOBIN 0.2 % (0.0-1.5); BG OXYGEN SATURATION 98.7 % (92.0-98.5); BG OXYHEMOGLOBIN 98.2 % (94.0-97.0); BG PCO2 33.7 mmHg (35.0-45.0); BG PH 7.476 (7.350-7.450); BG PO2 126.8 mmHg (75.0-100.0); BG SAMPLE SITE RIGHT RADIAL; BG TIDAL VOLUME(mL) 500 mL; BG TOTAL HEMOGLOBIN 8.6 g/dL (12.0-18.0); BG VENT MODE VENT - A/C; BG VENT RATE 16 set
[2019-12-17 20:00] VITALS: BP 90/51
[2019-12-17] MEDS: DEXT 5%/0.45% NACL 1000ML 1,000 ML IV SCH (20:30)
[2019-12-17] MEDS ORDERED: DEXTROSE 50% WATER 50ML SYRINGE IV PRN (20:30)
[2019-12-17] MEDS ORDERED: MORPHINE SULFATE 2 MG/ML CPJ (NOT FOR IM USE) IV PRN (20:30)
[2019-12-17] MEDS ORDERED: INSULIN LISPRO 100 UNITS/ML SUBCUT SCH (21:00)
[2019-12-17 22:00] VITALS: BP_SYST 107; BP_SYST 98; BP_DIAS 51; BP_DIAS 63
[2019-12-17] MEDS ORDERED: PIPERACILLIN/TAZOBACTAM 3.375 G/VIAL IV SCH (22:00)
[2019-12-17] MEDS: PIPERACILLIN/TAZOBACTAM 3.375 G in DEXT 5% WATER 100 ML IV SCH (23:12)
[2019-12-17] MEDS: BLOOD SUGAR DIAGNOSTIC STRIP TEST SCH (23:13)
[2019-12-17] MEDS: INSULIN LISPRO 100 UNITS/ML SUBCUT SCH (23:20)
[2019-12-18] VITALS (12 sets, daily range): BP systolic 91–109; BP diastolic 47–60
[2019-12-18] MEDS: IPRATROPIUM/ALBUTEROL 0.5-3(2.5)MG/3ML NEB HHN SCH ×4 (00:02→21:55)
[2019-12-18] MEDS: VANCOMYCIN HCL 750 MG in DEXT 5% WATER 250 ML IV SCH ×3 (00:33→22:05)
[2019-12-18] MEDS: DEXT 5%/0.45% NACL 1000ML 1,000 ML IV SCH (05:29)
[2019-12-18] MEDS: BLOOD SUGAR DIAGNOSTIC STRIP TEST SCH ×3 (05:29→17:24)
[2019-12-18] MEDS: INSULIN LISPRO 100 UNITS/ML SUBCUT SCH ×3 (05:29→17:53)
[2019-12-18 06:35] LABS: HEMOGLOBIN. 7.5 g/dL (14.0-18.0); MEAN CORPUSCULAR HEMOGLOBIN 31.5 pg (28.0-32.0); MEAN CORPUSCULAR VOLUME 92.4 fL (80.0-94.0); PLATELET 311 x1000/uL (130-400); RED BLOOD CELL COUNT 2.38 mill/uL (4.7-6.1); RED CELL DISTRIBUTION WIDTH 17.9 % (11.6-14.6)
[2019-12-18 06:37] LABS: CHLORIDE 102 mEq/L (98-107)
[2019-12-18] MEDS: PIPERACILLIN/TAZOBACTAM 3.375 G in DEXT 5% WATER 100 ML IV SCH ×2 (08:00→16:00)
[2019-12-18 09:14] LABS: PLATELET ESTIMATE NORMAL
[2019-12-18] MEDS ORDERED: MORPHINE SULFATE 2 MG/ML CPJ (NOT FOR IM USE) IV PRN (11:15)
[2019-12-18] MEDS ORDERED: POTASSIUM CHLORIDE 20MEQ TABLET SR PO NR (11:30)
[2019-12-18] MEDS: LEVOTHYROXINE SODIUM 50MCG TABLET GT SCH (11:47)
[2019-12-18] MEDS: FERROUS SULFATE 325MG TABLET PO SCH ×2 (12:09→17:25)
[2019-12-18] MEDS: MIDODRINE HCL 2.5MG TABLET PO SCH ×2 (14:34→22:05)
[2019-12-18 18:56] LABS: TOTAL IRON BINDING CAPACITY 152 ug/dL (250-450)
[2019-12-19] VITALS (12 sets, daily range): BP systolic 92–121; BP diastolic 46–66
[2019-12-19] MEDS: PIPERACILLIN/TAZOBACTAM 3.375 G in DEXT 5% WATER 100 ML IV SCH ×4 (00:40→23:21)
[2019-12-19] MEDS: BLOOD SUGAR DIAGNOSTIC STRIP TEST SCH ×5 (00:40→23:21)
[2019-12-19] MEDS: INSULIN LISPRO 100 UNITS/ML SUBCUT SCH ×5 (06:00→23:21)
[2019-12-19] MEDS: MIDODRINE HCL 2.5MG TABLET PO SCH ×3 (06:11→23:21)
[2019-12-19 07:38] LABS: HEMATOCRIT. 22.5 % (42.0-52.0); HEMOGLOBIN. 7.6 g/dL (14.0-18.0); MEAN CORPUSCULAR HEMOGLOBIN 31.3 pg (28.0-32.0); MEAN CORPUSCULAR VOLUME 92.6 fL (80.0-94.0); MEAN PLATELET VOLUME 6.9 fl (7.4-10.4); PLATELET 323 x1000/uL (130-400); RED BLOOD CELL COUNT 2.43 mill/uL (4.7-6.1); RED CELL DISTRIBUTION WIDTH 18.1 % (11.6-14.6)
[2019-12-19 08:00] LABS: CHLORIDE 103 mEq/L (98-107)
[2019-12-19] MEDS: PANTOPRAZOLE SODIUM 40 MG/VIAL IV SCH (08:18)
[2019-12-19] MEDS: LEVOTHYROXINE SODIUM 50MCG TABLET GT SCH (08:19)
[2019-12-19] MEDS: FERROUS SULFATE 325MG TABLET PO SCH ×3 (08:19→17:18)
[2019-12-19] MEDS: FINASTERIDE 5MG TABLET PO SCH (08:19)
[2019-12-19] MEDS: MULTIVITAMINS,THER W-MINERALS TABLET GT SCH (08:19)
[2019-12-19] MEDS: ASCORBIC ACID 500 MG TABLET GT SCH (08:19)
[2019-12-19] MEDS: IPRATROPIUM/ALBUTEROL 0.5-3(2.5)MG/3ML NEB HHN SCH ×2 (08:44→16:55)
[2019-12-19] MEDS: VANCOMYCIN 1,000 MG in DEXT 5% WATER 250 ML IV SCH (13:21)
[2019-12-20] VITALS (12 sets, daily range): BP systolic 90–106; BP diastolic 44–56
[2019-12-20] MEDS: IPRATROPIUM/ALBUTEROL 0.5-3(2.5)MG/3ML NEB HHN SCH ×4 (00:21→23:48)
[2019-12-20 04:39] LABS: PLATELET ESTIMATE NORMAL
[2019-12-20] MEDS: MIDODRINE HCL 2.5MG TABLET PO SCH ×3 (05:16→21:30)
[2019-12-20] MEDS: INSULIN LISPRO 100 UNITS/ML SUBCUT SCH ×4 (05:16→23:15)
[2019-12-20] MEDS: BLOOD SUGAR DIAGNOSTIC STRIP TEST SCH ×4 (05:16→23:15)
[2019-12-20] MEDS: LEVOTHYROXINE SODIUM 50MCG TABLET GT SCH (08:38)
[2019-12-20] MEDS: PIPERACILLIN/TAZOBACTAM 3.375 G in DEXT 5% WATER 100 ML IV SCH ×3 (08:39→23:14)
[2019-12-20] MEDS: PANTOPRAZOLE SODIUM 40 MG/VIAL IV SCH (08:39)
[2019-12-20] MEDS: MULTIVITAMINS,THER W-MINERALS TABLET GT SCH (08:39)
[2019-12-20] MEDS: VANCOMYCIN 1,000 MG in DEXT 5% WATER 250 ML IV SCH (08:39)
[2019-12-20] MEDS: FINASTERIDE 5MG TABLET PO SCH (08:39)
[2019-12-20] MEDS: FERROUS SULFATE 325MG TABLET PO SCH ×3 (08:39→18:20)
[2019-12-20] MEDS: ASCORBIC ACID 500 MG TABLET GT SCH (08:39)
[2019-12-21] VITALS (7 sets, daily range): BP systolic 85–156; BP diastolic 35–71
[2019-12-21] MEDS: BLOOD SUGAR DIAGNOSTIC STRIP TEST SCH (06:23)
[2019-12-21] MEDS: MIDODRINE HCL 2.5MG TABLET PO SCH (06:23)
[2019-12-21] MEDS: INSULIN LISPRO 100 UNITS/ML SUBCUT SCH (06:28)
[2019-12-21 06:40] LABS: CHLORIDE 104 mEq/L (98-107)
[2019-12-21] MEDS: ASCORBIC ACID 500 MG TABLET GT SCH (08:28)
[2019-12-21] MEDS: PANTOPRAZOLE SODIUM 40 MG/VIAL IV SCH (08:28)
[2019-12-21] MEDS: MULTIVITAMINS,THER W-MINERALS TABLET GT SCH (08:28)
[2019-12-21] MEDS: FERROUS SULFATE 325MG TABLET PO SCH (08:28)
[2019-12-21] MEDS: LEVOTHYROXINE SODIUM 50MCG TABLET GT SCH (08:28)
[2019-12-21] MEDS: IPRATROPIUM/ALBUTEROL 0.5-3(2.5)MG/3ML NEB HHN SCH (08:38)
[2019-12-21] MEDS: PIPERACILLIN/TAZOBACTAM 3.375 G in DEXT 5% WATER 100 ML IV SCH (08:45)
[2019-12-21] MEDS: FINASTERIDE 5MG TABLET PO SCH (09:08)
[2019-12-21] MEDS ORDERED: CEFEPIME 2,000 MG in DEXT 5% WATER 100 ML IV SCH (14:00)
== END 2019-12-21 10:00 | DRG 720 ==
LOC: ER 14:14 → 5EST 16:14 → EDBEDREQTM 16:17 → EDBEDREQ 16:17 → ENRESERV 17:57
PROVIDERS: ADMIT Internal Medicine; ATTEND Internal Medicine
PROC: 5A1945Z Respiratory Ventilation, 24-96 Consecutive Hours (ICD-10-PCS; principal; 2019-12-17)
DX: A41.9 Sepsis, unspecified organism (principal); J96.21 Acute and chronic respiratory failure with hypoxia; E43 Unspecified severe protein-calorie malnutrition; J95.851 Ventilator associated pneumonia; Z99.11 Dependence on respirator [ventilator] status; J91.8 Pleural effusion in other conditions classified elsewhere; Z93.0 Tracheostomy status; E11.22 Type 2 diabetes mellitus with diabetic chronic kidney disease; E11.51 Type 2 diabetes mellitus with diabetic peripheral angiopathy without gangrene; J44.0 Chronic obstructive pulmonary disease with (acute) lower respiratory infection; I48.91 Unspecified atrial fibrillation; D64.9 Anemia, unspecified; E03.9 Hypothyroidism, unspecified; N18.9 Chronic kidney disease, unspecified; I49.3 Ventricular premature depolarization; I12.9 Hypertensive chronic kidney disease with stage 1 through stage 4 chronic kidney disease, or unspecified chronic kidney disease; Y95 Nosocomial condition; R74.0 Nonspecific elevation of levels of transaminase and lactic acid dehydrogenase [LDH]; K21.9 Gastro-esophageal reflux disease without esophagitis; N40.0 Benign prostatic hyperplasia without lower urinary tract symptoms; R47.02 Dysphasia; Z93.1 Gastrostomy status; Z79.899 Other long term (current) drug therapy; Z87.440 Personal history of urinary (tract) infections; Z68.25 Body mass index [BMI] 25.0-25.9, adult
CPT/HCPCS: 36415; 36600; 71045; 80048; 80053; 80202; 81003; 82375; 82805; 82962; 83036; 83540; 83550; 83605; 83880; 84145; 84484; 85025; 87070; 87077; 87186; 87804; 93005; 99291; C9113; J0692; J1815; J1956; J2543; J3370; J7060

== ENCOUNTER 2019-12-21 11:44 | Emergency (ER) | payer MEDICARE, MEDICAID ==
[~2019-12-21] VITALS: Ht 172.7 cm; Wt 75.0 kg
[2019-12-21 13:04] LABS: BG BASE EXCESS -2.4 mmol/L (-2.0-2.0); BG CARBOXYHEMOGLOBIN 2.4 % (0.5-1.5); BG DEOXYHEMOGLOBIN 6.6 % (0.0-5.0); BG FRACTION INSPIRED OXYGEN 40; BG HCO3 ACT 21.5 mmol/L (22.0-26.0); BG OXYGEN SATURATION 93.2 % (92.0-98.5); BG PCO2 34.4 mmHg (35.0-45.0); BG PH 7.413 (7.350-7.450); BG PO2 71.4 mmHg (75.0-100.0); BG SAMPLE SITE RIGHT RADIAL; BG TIDAL VOLUME(mL) 500 mL; BG TOTAL HEMOGLOBIN 13.9 g/dL (12.0-18.0); BG VENT MODE VENT - A/C; BG VENT RATE 16 set
[2019-12-21 14:07] VITALS: BP 113/67
== END 2019-12-21 15:20 | disposition home or self-care (01) ==
LOC: ER 11:44 → EDBEDREQ 12:30 → CANBEDREQ 13:38 → ER 15:20
DX: J96.10 Chronic respiratory failure, unspecified whether with hypoxia or hypercapnia (principal); J44.9 Chronic obstructive pulmonary disease, unspecified; I10 Essential (primary) hypertension; E11.9 Type 2 diabetes mellitus without complications; K21.9 Gastro-esophageal reflux disease without esophagitis; I48.91 Unspecified atrial fibrillation; E03.9 Hypothyroidism, unspecified; Z93.1 Gastrostomy status; Z99.11 Dependence on respirator [ventilator] status; Z79.01 Long term (current) use of anticoagulants
CPT/HCPCS: 36600; 71045; 82375; 82805; 93005; 99285